=== PATIENT | female | born 1960 | race Caucasian/White ===

== ENCOUNTER → 2021-04-26 | Outpatient (CLI) | payer MEDICARE, OTHER ==
[~2021-04-26] VITALS: Ht 147.3 cm; Wt 99.5 kg
[~2021-04-26] MED LIST: LIDOCAINE 1% INJ 20 ML 20 ML VIAL INJ ONE
--- NOTE | 2021-04-26 17:01 | Diagnostic Imaging Report ---
INDICATION: Left breast calcifications. Patient presents for stereotactic biopsy. Patient brought is stereotactic suite place on the jay in a sitting upright position. Left breast was positioned lateral medial. The cluster microcalcifications in the upper and outer aspect of the left breast were stereotactically targeted. The lateral left breast was then prepped and draped usual sterile fashion. Small amount of 1% lidocaine was utilized for local anesthesia. Multiple core biopsies were obtained utilizing 10-gauge needle. All images were viewed on dedicated workstation. Follow-up specimen radiograph does show numerous calcifications within one of the core samples. Needle was removed. Marker clip was deployed. Hemostasis was obtained using manual compression. Patient tolerated the procedure well. Post procedure mammogram shows a marker clip in the upper and outer left breast. IMPRESSION: Successful left breast stereotactic biopsy of cluster of microcalcifications in the upper and outer aspect of the left breast at anterior depth. Pathology results are currently pending. Dictated by: Dictated on workstation # [id number]
--- NOTE | 2021-04-26 17:01 | Diagnostic Imaging Report ---
INDICATION: Left breast calcifications. Patient presents for stereotactic biopsy. DETAILS OF THE PROCEDURE: The patient was brought to the stereotactic suite and placed in a chair in the sitting upright position. The left breast was positioned lateral medial. The cluster of microcalcifications in the inferior central left breast was stereotactically targeted. The lateral left breast was prepped and draped in the usual sterile fashion. A small amount of 1% lidocaine was utilized for local anesthesia. A 10-gauge stereotactic needle was advanced and placed with its tip per stereotactic coordinates. Multiple core biopsies were obtained. A specimen radiograph showed only minimal calcifications; therefore, the needle was removed and the cluster in the inferior central left breast was retargeted. The needle was advanced per new coordinates and additional core sampling was performed. A specimen radiograph did showed numerous calcifications located with one of the cores. The marker clip was then deployed. Hemostasis was obtained using manual compression. The patient tolerated the procedure well. Followup 2D CC and MLO mammography demonstrated a marker clip in the inferior central left breast. All images were viewed on a dedicated workstation. IMPRESSION: Successful stereotactic biopsy of a cluster of microcalcifications in the inferior central left breast. Pathology results are currently pending. Dictated by: Dictated on workstation # [id number]
== END ==
LOC: RAD 07:53
PROVIDERS: ATTEND Nurse Practitioner Family
DX: N63.20 Unspecified lump in the left breast, unspecified quadrant (principal)
CPT/HCPCS: 19081; 19082; A4648 ×2